=== PATIENT | female | born 1945 | race Caucasian/White ===

== ENCOUNTER 2016-08-24 20:22 | Emergency (ER) | payer MEDICARE ==
[~2016-08-24 20:22] MED LIST: ASPIRIN81 M2 PO; KEFLEX500 M2 PO; MAGNESIUM250 M1 PO; METHSCOPOLAMINE5 MG PO; MULTI VITAMIN1 EACH PO; POTASSIUM GLUCO99 MG PO; VALSARTAN-HCTZ1 EAC3 PO; VITAMIN D31000 UNI1 PO
== END 2016-08-24 20:24 | disposition home or self-care (01) ==
LOC: SED 20:22
DX: J32.9 Chronic sinusitis, unspecified (principal)
CPT/HCPCS: 99282

== ENCOUNTER → 2017-01-06 | Outpatient (CLI) | payer MEDICARE ==
[~2017-01-06] MED LIST changes: +ARIMIDEX1 MG; +VELAFAXINE
--- NOTE | ~2017-01-06 | MY26 ---
[facility] A Service of [facility] RADIOLOGY TEXT RESULTS PATIENT: NURYS MILAN LOCATION: [facility] : 47 UNIT #: [id number] AGE: [address]: Royal Stone MD SEX: F ORDER DR: [id number] [id number] [facility]. [place], [place] [address] [id number] O MR#: [id number] Acc #: [id number] NAME: NURYS MILAN : 1945 SEX: F STUDY DATE/TIME: 01/06/2017 10:50 UNIT: [facility] ROOM: STUDY DESCRIPTION: [facility] DIAGNOSTIC W/ CAD BILAT Attending Physician: Royal Stone M.D. Referring Physician: Royal Stone M.D. Ordering Physician: Royal Stone M.D. Primary Care Physician: Lukas Morales M.D. MEDICAL IMAGING REPORT This report is preliminary unless electronic signature is present EXAM Bilateral digital diagnostic mammogram with CAD HISTORY 71-year-old asymptomatic female status post left lumpectomy for a left breast cancer. FINDINGS CC and MLO views of both breasts were obtained. ML view of the left breast was also performed. The background breast parenchyma consists of scattered fibroglandular densities. There is post-surgical change at the inferior left breast. No new or suspicious findings. Right breast is negative. IMPRESSION Benign mammogram. Post-surgical change at the inferior left breast. Patients over the age of 40 are entered into a reminder system with target due date for the next mammogram. A result letter will also be sent to the patient. BIRADS: 2, benign findings. RECOMMENDATIONS Annual mammogram Dictated by... John Marino M.D. THIS IS AN ELECTRONICALLY VERIFIED REPORT [facility] A Service of [facility] RADIOLOGY TEXT RESULTS PATIENT: NURYS MILAN LOCATION: [facility] : 47 UNIT #: [id number] AGE: [address]: Royal Stone MD SEX: F ORDER DR: John Marino M.D. at 01/07/2017 9:44 AM RPTamara/kamille TD: 01/06/2017 15:40 JOB #: [id number] MEDICAL IMAGING REPORT Page 1 of 1 COPY
== END | disposition home or self-care (01) ==
LOC: CMAM 10:18
DX: Z08 Encounter for follow-up examination after completed treatment for malignant neoplasm (principal); Z85.3 Personal history of malignant neoplasm of breast
CPT/HCPCS: G0204

== ENCOUNTER 2017-01-21 08:36 | Emergency (ER) | payer MEDICARE ==
--- NOTE | ~2017-01-21 | CR157 ---
[facility] A Service of [facility] RADIOLOGY TEXT RESULTS PATIENT: NUYRS MILAN LOCATION: SED : 47 UNIT #: [id number] AGE: [address]: Ab Blancas MD SEX: F ORDER DR: [id number] [address] [address] [id number] E MR#: [id number] Acc #: [id number] NAME: NURYS MILAN : 1945 SEX: F STUDY DATE/TIME: 01/21/2017 9:34 UNIT: [facility] ROOM: STUDY DESCRIPTION: CR Humerus Min 2 View Rt Attending Physician: Ab Blancas M.D. Ordering Physician: Ab Blancas M.D. Primary Care Physician: Lukas Morales M.D. MEDICAL IMAGING REPORT This report is preliminary unless electronic signature is present. EXAM 2 views right humerus, 01/21/2017 at 09:34 HISTORY 71-year-old female with right humerus pain since yesterday after falling off her porch. COMPARISON Right forearm radiographs 02/05/2007. No previous right humerus radiographs for comparison. FINDINGS 3 surgical anchors are demonstrated within the humeral head. There is moderate osteoarthritic change of the right shoulder, with glenohumeral joint space narrowing, articular sclerosis and marginal osteophyte formation along the inferior margin. There is degenerative spurring along the greater tuberosity of the humerus. There is degenerative spurring at the acromioclavicular joint. No acromioclavicular or coracoclavicular separation is seen. The right elbow joint appears grossly normally aligned. There may be minimal spurring projecting from the medial femoral condyle. No right humeral fracture is seen. Imaged right lung appears clear. Imaged right ribs appear intact. IMPRESSION 1. Moderate osteoarthritic changes of the right shoulder joint with surgical anchors within the humeral head. 2. No acute abnormality of the right humerus. Dictated by... Regina Park M.D. THIS IS AN ELECTRONICALLY VERIFIED REPORT [facility] A Service of [facility] RADIOLOGY TEXT RESULTS PATIENT: NURYS MILAN LOCATION: SED : 47 UNIT #: [id number] AGE: [address]: Ab Blancas MD SEX: F ORDER DR: Regina Park M.D. at 01/22/2017 9:39 AM Ángela TD: 01/21/2017 11:59 JOB #: [id number] MEDICAL IMAGING REPORT Page 1 of 1
[~2017-01-21 08:36] MED LIST changes: -ARIMIDEX1 MG; -VELAFAXINE
[2017-01-21] MEDS ORDERED: ARIMIDEX1 MG (08:43)
[2017-01-21] MEDS ORDERED: VELAFAXINE (08:43)
== END 2017-01-21 10:29 | disposition home or self-care (01) ==
LOC: SED 08:36
DX: S40.021A Contusion of right upper arm, initial encounter (principal); S50.311A Abrasion of right elbow, initial encounter; W19.XXXA Unspecified fall, initial encounter; Y92.009 Unspecified place in unspecified non-institutional (private) residence as the place of occurrence of the external cause
CPT/HCPCS: 73060; 99283